=== PATIENT | female | born 1990 ===

== ENCOUNTER → 2017-09-06 | Outpatient (CLI) | payer OTHER ==
--- NOTE | 2017-09-07 16:20 | MR ---
EXAMINATION TYPE: MR knee RT wo con DATE OF EXAM: 09/06/2017 COMPARISON: Plain film 07/24/2017 HISTORY: Twisted rt knee, hx ACL repair TECHNIQUE: Multiplanar, multisequence imaging of the right knee is performed without IV contrast. FINDINGS: MEDIAL MENISCUS: Anterior aspect of the medial meniscus extends somewhat anteriorly over the anterior aspect of the proximal tibia as on prior exam, some local fluid is present and posterior horn is int act without tear. LATERAL MENISCUS: Anterior and posterior horns are intact without tear. CRUCIATE LIGAMENTS: The anterior and posterior cruciate ligaments are intact and unremarkable. COLLATERAL LIGAMENTS: The medial collateral ligament and lateral collateral ligament complex are inta ct and unremarkable. EXTENSOR MECHANISM: Visualized quadriceps and patellar tendons are intact. EFFUSION: There is a small joint effusion. POPLITEAL CYST: No popliteal/branch cyst. TRICOMPARTMENT SPACES: Intact CARTILAGE: No significant abnormality is evident BONE MARROW SIGNAL: No focal abnormal marrow signal is appreciated. OTHER: No additional significant abnormality is appreciated. IMPRESSION: Stable exam, no significant interval change. Small joint effusion. Additional findings above.
== END | disposition home or self-care (01) ==
LOC: RADMRIMAIN 17:51
PROVIDERS: ATTEND Orthopaedic Surgery
DX: M25.461 Effusion, right knee (principal)